=== PATIENT | male | born 1995 | race Asian ===

== ENCOUNTER 2016-08-06 04:14 | Emergency (ER) | payer OTHER ==
[2016-08-06] MEDS ORDERED: IBUPROFEN 600 MG TABLET PO ONE (04:59)
[2016-08-06] MEDS ORDERED: ACETAMINOPHEN 325 MG TABLET PO ONE (04:59)
== END 2016-08-06 05:16 | disposition home or self-care (01) ==
DX: S16.1XXA Strain of muscle, fascia and tendon at neck level, initial encounter (principal); V47.1XXA Car passenger injured in collision with fixed or stationary object in nontraffic accident, initial encounter
CPT/HCPCS: 99282; 99283; A9270